=== PATIENT | female | born 1980 | race Caucasian/White ===

== ENCOUNTER → 2017-09-11 12:45 | Outpatient (CLI) | payer MEDICAID, SELFPAY ==
--- NOTE | 2017-09-11 13:00 | US_ITS ---
STUDY: ULTRASOUND OF THE FEMALE PELVIS - COMPLETE REASON FOR EXAM: Female, 37 years old. Irregular bleeding. TECHNIQUE: Abdominal and transvaginal pelvic ultrasound. COMPARISON: None. FINDINGS: Anteverted uterus in the midline measuring 6.9 x 5.2 x 3.7 cm. Normal myometrial echotexture. Cervical nabothian cysts are present, otherwise unremarkable cervix. Endometrium 9.7 mm, normal thickness. Mildly heterogeneous echotexture with no suspicious features. Right ovary 35 x 29 x 12 mm and left ovary 28 x 14 x 14 mm. Each contains small physiologic follicles and exhibits appropriate Doppler vascular flow. There is no adnexal mass or suspicious cyst and there is no cul-de-sac or adnexal free fluid. US/Pelvic (Non ) IMPRESSION: Mild heterogeneity of the endometrium is nonspecific. No masslike features. Endometrium is not abnormally thickened, maximum dimension 9.7 mm. Otherwise unremarkable appearance of uterus and ovaries. Electronically Signed: Clovis Almeida, at 14:46 EDT Tel , Service support ,
--- NOTE | 2017-09-11 13:14 | US_ITS ---
STUDY: ULTRASOUND OF THE FEMALE PELVIS - COMPLETE REASON FOR EXAM: Female, 37 years old. Irregular bleeding. TECHNIQUE: Abdominal and transvaginal pelvic ultrasound. COMPARISON: None. FINDINGS: Anteverted uterus in the midline measuring 6.9 x 5.2 x 3.7 cm. Normal myometrial echotexture. Cervical nabothian cysts are present, otherwise unremarkable cervix. Endometrium 9.7 mm, normal thickness. Mildly heterogeneous echotexture with no suspicious features. Right ovary 35 x 29 x 12 mm and left ovary 28 x 14 x 14 mm. Each contains small physiologic follicles and exhibits appropriate Doppler vascular flow. There is no adnexal mass or suspicious cyst and there is no cul-de-sac or adnexal free fluid. US/Transvaginal Non- IMPRESSION: Mild heterogeneity of the endometrium is nonspecific. No masslike features. Endometrium is not abnormally thickened, maximum dimension 9.7 mm. Otherwise unremarkable appearance of uterus and ovaries. Electronically Signed: Clovis Almeida, at 14:46 EDT Tel , Service support ,
== END ==
PROVIDERS: Visit Provider Obstetrics & Gynecology
DX: N92.6 Irregular menstruation, unspecified (principal)
CPT/HCPCS: 76830; 76856; 93976

== ENCOUNTER → 2017-09-14 10:41 | Outpatient (CLI) | payer MEDICAID, SELFPAY ==
[2017-09-14 12:56] LABS: hCG Titer Quant., Serum < 1 mIU/mL (<9 non-preg)
[2017-09-14 13:01] LABS: Hemoglobin A1c 4.9 % (4.2-6.3)
[2017-09-14 13:07] LABS: Estradiol 96.7 pg/mL; Free T3 2.3 pg/mL (2.18-3.98); T4 Free Direct 0.82 ng/dL (0.76-1.46); Thyroid Stim Hormone (TSH) 1.14 uIU/mL (0.358-3.74)
[2017-09-15 11:29] LABS: Progesterone Level 8.63 ng/mL (See Comment)
== END ==
PROVIDERS: Visit Provider Obstetrics & Gynecology
DX: N92.6 Irregular menstruation, unspecified (principal)
CPT/HCPCS: 36415; 82670; 83036; 84144; 84403; 84439; 84443; 84481; 84702

== ENCOUNTER → 2017-12-20 14:30 | Outpatient (CLI) | payer MEDICAID, SELFPAY ==
[2017-12-26 09:03] LABS: HPV Reflexed? NOT INDICATED
== END ==
PROVIDERS: Visit Provider Obstetrics & Gynecology
DX: Z12.4 Encounter for screening for malignant neoplasm of cervix (principal)
CPT/HCPCS: 88175; G0145

== ENCOUNTER → 2019-01-28 14:01 | Outpatient (CLI) | payer MEDICAID, SELFPAY ==
[2019-01-31 16:08] LABS: Age Gdln ACOG Testing 30-65 (.)
[2019-02-01 16:08] LABS: HPV APTIMA, High Risk Negative (Negative); HPV Reflexed? YES, CHARGE PATIENT
== END ==
PROVIDERS: Visit Provider Obstetrics & Gynecology
DX: Z12.4 Encounter for screening for malignant neoplasm of cervix (principal)
CPT/HCPCS: 87624; 88175; G0145

== ENCOUNTER → 2019-09-16 13:49 | Outpatient (CLI) | payer MEDICAID, SELFPAY ==
--- NOTE | 2019-09-16 13:52 | CT_ITS ---
STUDY: CT SOFT TISSUE NECK WITH CONTRAST REASON FOR EXAM: Female, 39 years old. VOCAL CORD PARALYSIS, PAIN IN BACK OF THROAT, FEELS LIKE A KNOT IN THE BACK OF THROAT RADIATION DOSAGE (If Supplied By Facility): CTDIvol = ( 12.28 ) mGy, DLP = ( 454.19 ) mGycm TECHNIQUE: The patient was scanned in a multi-detector CT scanner. High resolution transaxial imaging was performed following intravenous administration of IV 100mL Isovue-300. Sagittal and coronal images were reconstructed. Individualized dose optimization techniques were used for this CT. COMPARISON: None. FINDINGS: Normal bilateral parotid glands. Normal bilateral imaging system administrator spaces. Normal bilateral parapharyngeal spaces. Normal bilateral carotid spaces. Normal bilateral sublingual and submandibular glands and spaces. Normal visualized nasopharynx. Normal retropharyngeal space. Normal perivertebral space. Normal visualized bilateral faucial tonsils. The visualized tongue, tongue base and oropharynx are normal. The visualized cervical lymph nodes (levels I-) are within normal size limits, and maintain normal morphology. There is no demonstrated solid or cystic mass lesion. There is no abnormal contrast enhancement. Normal epiglottis, bilateral vallecula and hypopharynx. The pre-epiglottic and paraglottic adipose spaces are normal. Normal visualized bilateral piriform sinuses, aryepiglottic folds, vocal cords, and arytenoid-cricoid articulations. Normal subglottic trachea. Normal bilateral lobes of the thyroid gland. Normal visualized pulmonary apices. Normal visualized paranasal sinuses. Normal visualized cervical spine. CT/Soft Tissue Neck WITH Contrast IMPRESSION: Normal enhanced CT examination of the soft tissues of the neck. Electronically Signed: Kevin Ulloa MD at 14:28 EDT , Service support ,
== END ==
PROVIDERS: Referring Provider Otolaryngology; Visit Provider Otolaryngology
DX: J38.01 Paralysis of vocal cords and larynx, unilateral (principal)
CPT/HCPCS: 70491; Q9967

== ENCOUNTER → 2020-05-19 09:04 | Outpatient (CLI) | payer MEDICAID, SELFPAY ==
[2020-05-19 10:09] LABS: Absolute Lymphocyte Count 1.28 X10^3/uL (0.83-4.51); Basophil# 0.06 X10^3/uL; Basophil% 1.2 % (0-1); Eosinophil# 0.19 X10^3/uL; Eosinophils% 3.8 % (0-5); Hematocrit 37.1 % (37-47); Hemoglobin 12.3 g/dL (12.0-15.0); Lymphocyte # 1.28 X10^3/ul (4.0); Lymphocyte % 25.4 % (19-41); Mean Corp Hgb Conc 33.2 g/dL (32-36); Mean Corpuscular Hgb 32.2 pg (27.0-32.0); Mean Corpuscular Volume 97.1 fL (81-99); Mean Platelet Vol. 10.1 fl (6.2-12.0); Monocyte# 0.49 X10^3/uL; Monocyte% 9.7 % (0-10); NRBC Flagged by Analyzer 0 % (0-5); Neutrophil # 3.01 X10^3/uL (2.7-7.7); Neutrophil % 59.7 % (47-70); Platelet Count 264 K/mm3 (150-450); RBC Distribution Width CV 11.9 % (11.6-14.6); RBC Distribution Width SD 42.1 fl (35.1-43.9); Red Blood Count 3.82 M/mm3 (4.2-5.4)
[2020-05-19 10:36] LABS: Vitamin B12 232 pg/mL (211-911); Vitamin D,25 Hydroxy 12.3 ng/mL
[2020-05-19 10:39] LABS: Anion Gap 5 (5-15); BUN 12 mg/dL (7-18); BUN/Creat Ratio 15.3 RATIO (10-20); Chloride 107 mmol/L (98-107); Cholesterol 169 mg/dL (200); Creatinine, Serum 0.78 mg/dL (0.55-1.02); EST Glomerular Filtration Rate 86 mL/min (>60); Est Glom Filt Rate - Afr Amer 105 mL/min (>60); Glucose 82 mg/dL (74-106); High Density Lipoprotein 84 mg/dL; Potassium 3.8 mmol/L (3.5-5.1); Sodium Level 139 mmol/L (136-145); Triglycerides 96 mg/dL; Very Low Density Lipoprotein 19 mg/dL (5-40)
== END ==
PROVIDERS: PCP Family Medicine; Referring Provider Family Medicine; Visit Provider Family Medicine
DX: Z00.00 Encounter for general adult medical examination without abnormal findings (principal); Z78.9 Other specified health status; R00.2 Palpitations; Z82.49 Family history of ischemic heart disease and other diseases of the circulatory system
CPT/HCPCS: 36415; 80048; 80061; 82306; 82607; 85025

== ENCOUNTER → 2020-12-17 | Outpatient (CLI) | payer MEDICAID, SELFPAY | END | disposition home or self-care (01) | PROVIDERS: PCP Family Medicine; Referring Provider Otolaryngology; Visit Provider Otolaryngology | DX: Z03.818 Encounter for observation for suspected exposure to other biological agents ruled out (principal); Z11.59 Encounter for screening for other viral diseases | CPT/HCPCS: 87635; U0005; U0003 ==

== ENCOUNTER → 2021-03-16 | Outpatient (CLI) | payer MEDICAID, SELFPAY | END | disposition home or self-care (01) | LOC: LABSPEC 10:04 | PROVIDERS: PCP Family Medicine; Visit Provider Otolaryngology | DX: Z11.59 Encounter for screening for other viral diseases (principal); Z03.818 Encounter for observation for suspected exposure to other biological agents ruled out | CPT/HCPCS: 87635; U0005; U0003 ==

== ENCOUNTER 2021-05-26 08:06 | Outpatient (CLI) | payer MEDICAID, SELFPAY ==
[2021-05-26 08:38] LABS: Absolute Lymphocyte Count 0.98 X10^3/uL (0.83-4.51); Absolute Neutrophil Count 2.3 X10^3/uL (2.0-7.7); Basophil# 0.07 X10^3/uL; Basophil% 1.8 % (0-1); Eosinophil# 0.15 X10^3/uL; Eosinophils% 3.9 % (0-5); Hematocrit 37.5 % (37-47); Hemoglobin 12.7 g/dL (12.0-15.0); Lymphocyte # 0.98 X10^3/ul (0.83-4.51); Lymphocyte % 25.5 % (19-41); Mean Corp Hgb Conc 33.9 g/dL (32-36); Mean Corpuscular Hgb 31.7 pg (27.0-32.0); Mean Corpuscular Volume 93.5 fL (81-99); Mean Platelet Vol. 9.6 fl (6.2-12.0); Monocyte# 0.36 X10^3/uL; Monocyte% 9.4 % (0-10); NRBC Flagged by Analyzer 0 % (0-5); Neutrophil # 2.27 X10^3/uL (2.7-7.7); Neutrophil % 59.1 % (47-70); Platelet Count 271 K/mm3 (150-450); RBC Distribution Width SD 41.1 fl (35.1-43.9); Red Blood Count 4.01 M/mm3 (4.2-5.4); White Blood Count 3.8 K/mm3 (4.4-11.0)
--- NOTE | 2021-05-26 08:54 | RAD_ITS ---
STUDY: X-RAY - PELVIS AND RIGHT HIP REASON FOR EXAM: Female, 41 years old. Right hip pain. TECHNIQUE: 3 views of the pelvis and hip. COMPARISON: None. FINDINGS: There is a non-specific bowel gas pattern. Normal visualized soft tissue structures. Normal bilateral iliac wings, sacroiliac joints and visualized sacrum. Normal bilateral superior and inferior pubic rami. Normal pubic symphysis. Normal bilateral ischial tuberosities. Incidentally noted is mild lumbosacral spondylosis. Normal visualized femoral head. Normal acetabulum. Normal hip joint. RAD/HIP, UNI W/ Pelvis 2-3 Views IMPRESSION: Mild lumbosacral spondylosis. No abnormality of the visualized pelvis, hips or proximal femurs. No acute abnormality, evidence of erosive changes or fusion. Electronically Signed: Sriram Pat MD at 10:10 EST ,
[2021-05-26 09:08] LABS: Vitamin B12 126 pg/mL (211-911); Vitamin D,25 Hydroxy 10.2 ng/mL
[2021-05-26 09:13] LABS: ALB/GLOB Ratio 1.3 RATIO (0.9-2.4); AST(SGOT) 21 U/L (15-37); Alanine Aminotransfer ALT/SGPT 22 U/L (13-56); Albumin, Serum 3.9 g/dL (3.2-5.0); Alkaline Phosphatase 58 U/L (45-117); Anion Gap 6 (5-15); BUN 15 mg/dL (7-18); BUN/Creat Ratio 20.2 RATIO (10-20); CRP, High Sensitivity Cardiac < 0.16 mg/L; Calcium,Total 8.5 mg/dL (8.5-10.1); Chloride 105 mmol/L (98-107); Cholesterol 141 mg/dL (200); Creatinine, Serum 0.74 mg/dL (0.55-1.02); EST Glomerular Filtration Rate 91 mL/min (>60); Est Glom Filt Rate - Afr Amer 110 mL/min (>60); Glucose 88 mg/dL (74-106); High Density Lipoprotein 68 mg/dL; Iron Binding Capacity,Total 420 ug/dL (250-450); Potassium 4.3 mmol/L (3.5-5.1); Protein, Total 6.9 g/dL (6.4-8.2); Sodium Level 139 mmol/L (136-145); T4 Free Direct 0.78 ng/dL (0.76-1.46); Thyroid Stim Hormone (TSH) 1.22 uIU/mL (0.358-3.74); Triglycerides 65 mg/dL; Very Low Density Lipoprotein 13 mg/dL (5-40)
[2021-05-26 09:19] LABS: Homocysteine 12.6 umol/L (3.2-10.7)
== END 2021-05-26 23:59 | disposition home or self-care (01) ==
PROVIDERS: PCP Family Medicine; Referring Provider Family Medicine; Visit Provider Family Medicine
DX: Z00.00 Encounter for general adult medical examination without abnormal findings (principal); M25.551 Pain in right hip; E78.5 Hyperlipidemia, unspecified
CPT/HCPCS: 36415; 73502; 80053; 80061; 82306; 82607; 83090; 83550; 84439; 84443; 85025; 86141

== ENCOUNTER 2021-07-13 09:06 | Outpatient (CLI) | payer MEDICAID, SELFPAY | END 2021-07-13 23:59 | disposition home or self-care (01) | LOC: LABSPEC 09:12 | PROVIDERS: PCP Family Medicine; Referring Provider Otolaryngology; Visit Provider Otolaryngology | DX: Z20.822 Contact with and (suspected) exposure to COVID-19 (principal) | CPT/HCPCS: 87635; U0003; U0005 ==

== ENCOUNTER → 2021-07-29 | Outpatient (CLI) | payer MEDICAID, SELFPAY ==
[2021-07-29 10:39] LABS: Vitamin B12 559 pg/mL (211-911); Vitamin D,25 Hydroxy 40.6 ng/mL
[2021-07-29 10:54] LABS: Homocysteine 6.8 umol/L (3.2-10.7)
== END | disposition home or self-care (01) ==
LOC: MTLAB 08:16
PROVIDERS: PCP Family Medicine; Referring Provider Family Medicine; Visit Provider Family Medicine
DX: E53.8 Deficiency of other specified B group vitamins (principal); E72.11 Homocystinuria; E55.9 Vitamin D deficiency, unspecified
CPT/HCPCS: 36415; 82306; 82607; 83090

== ENCOUNTER → 2023-05-16 | Outpatient (CLI) | payer BC, SELFPAY ==
--- NOTE | 2023-05-16 10:01 | RAD_ITS ---
STUDY: X-RAY - ABDOMEN/PELVIS REASON FOR EXAM: Female, 43 years old. ABDOMINAL PAIN TECHNIQUE: Single AP view of the abdomen / pelvis. COMPARISON: None. FINDINGS: Normal visualized lung bases. There is a moderate amount of colonic fecal material. The visualized liver, spleen and kidneys are grossly normal in size and morphology. Normal soft tissue structures. Normal visualized osseous structures. RAD/Abdomen Single View IMPRESSION: Normal x-ray examination of the abdomen and pelvis. Electronically Signed: Manuelito Manley MD at 15:07 EST ,
[2023-05-16 12:34] LABS: Erythrocyte Sedimentation Rate < 1 mm/hr (0-30)
[2023-05-16 12:43] LABS: ALB/GLOB Ratio 1.5 RATIO (0.9-2.4); AST(SGOT) 22 U/L (15-37); Alanine Aminotransfer ALT/SGPT 18 U/L (13-56); Alkaline Phosphatase 54 U/L (45-117); Anion Gap 7 (5-15); BUN 10 mg/dL (7-18); BUN/Creat Ratio 13.7 RATIO (10-20); CRP < 2.90 mg/L (0.0-3.0); Calcium,Total 8.6 mg/dL (8.5-10.1); Chloride 108 mmol/L (98-107); Creatinine, Serum 0.73 mg/dL (0.55-1.02); EST Glomerular Filtration Rate 92 mL/min (>60); Est Glom Filt Rate - Afr Amer 112 mL/min (>60); Globulin 2.6 g/dL (2.2-4.2); Glucose 92 mg/dL (74-106); Potassium 3.7 mmol/L (3.5-5.1); Protein, Total 6.6 g/dL (6.4-8.2); Sodium Level 141 mmol/L (136-145)
[2023-05-16 12:44] LABS: Absolute Lymphocyte Count 0.81 X10^3/uL (0.83-4.51); Absolute Neutrophil Count 2.2 X10^3/uL (2.0-7.7); Basophil# 0.03 X10^3/uL; Basophil% 0.9 % (0-1); Eosinophil# 0.12 X10^3/uL; Eosinophils% 3.5 % (0-5); Hematocrit 37.3 % (37-47); Hemoglobin 12.4 g/dL (12.0-15.0); Lymphocyte # 0.81 X10^3/ul (0.83-4.51); Lymphocyte % 23.5 % (19-41); Mean Corp Hgb Conc 33.2 g/dL (32-36); Mean Corpuscular Hgb 32.1 pg (27.0-32.0); Mean Corpuscular Volume 96.6 fL (81-99); Mean Platelet Vol. 10.5 fl (6.2-12.0); Monocyte% 8.7 % (0-10); NRBC Flagged by Analyzer 0 % (0-5); Neutrophil # 2.18 X10^3/uL (2.7-7.7); Neutrophil % 63.4 % (47-70); Platelet Count 234 K/mm3 (150-450); RBC Distribution Width CV 12.1 % (11.6-14.6); RBC Distribution Width SD 42.3 fl (35.1-43.9); Red Blood Count 3.86 M/mm3 (4.2-5.4); White Blood Count 3.4 K/mm3 (4.4-11.0)
== END | disposition home or self-care (01) ==
PROVIDERS: PCP Nurse Practitioner Family; Referring Provider Nurse Practitioner Family; Visit Provider Nurse Practitioner Family
DX: R10.84 Generalized abdominal pain (principal); R19.4 Change in bowel habit; R19.8 Other specified symptoms and signs involving the digestive system and abdomen
CPT/HCPCS: 36415; 74018; 80053; 85025; 85652; 86140

== ENCOUNTER → 2023-08-25 | Outpatient (CLI) | payer BC, SELFPAY | END | disposition home or self-care (01) | PROVIDERS: PCP Nurse Practitioner Family; Referring Provider Family Medicine; Visit Provider Family Medicine | DX: R19.7 Diarrhea, unspecified (principal) | CPT/HCPCS: 83630; 87177; 87209; 87329; 87493; 87506 ==

== ENCOUNTER → 2023-09-05 | Outpatient (CLI) | payer BC, SELFPAY ==
--- NOTE | 2023-09-05 13:56 | CT_ITS ---
STUDY: CT ABDOMEN AND PELVIS WITH CONTRAST REASON FOR EXAM: Female, 43 years old. DIARRHEA/WEIGHT LOSS RADIATION DOSAGE (If Supplied By Facility): CTDIvol = ( 11.37 ) mGy, DLP = ( 465.61 ) mGycm TECHNIQUE: Transaxial images were obtained from the dome of the diaphragm to the symphysis pubis with oral contrast. Oral and amp; IV Readi-CAT and amp; 100mL Isovue-300 was administered. Sagittal and coronal images were reconstructed. Individualized dose optimization techniques were used for this CT. COMPARISON: None. FINDINGS: Patchy infiltrates in the posterior medial segment of the left lower lobe. Follow-up recommended. The visualized portions of the heart are within normal limits. There is a 6.2 mm cyst in the superior medial aspect of the right lobe of the liver. The gallbladder is contracted. Normal spleen. Normal pancreas. Normal bilateral adrenal glands. Normal right kidney. Normal left kidney. Normal visualized stomach. Findings suggestive of a thickening of the possibility conniventes of the small bowel loops. Correlation with a small bowel follow-through examination recommended. Large amount of fecal material is seen in the colon. The appendix is visualized and appears normal. Normal abdominal aorta. Normal inferior vena cava. Normal retroperitoneum. Normal urinary bladder. Small amount of free fluid is seen in the cul-de-sac. Normal abdominal wall. Moderate degree of disc space narrowing at the L5-S1 level with the anterolisthesis of L5 on S1 due to spondylolysis of the pars interarticularis of the L5 vertebrae. CT/Abdomen/Pelvis WITH Contrast IMPRESSION: Large amount of fecal material is seen in the colon. Edematous changes of the abdomen, the ventricles of the small bowel loops. Correlation with a small bowel follow-through examination recommended. Infiltrates in the left lower lobe. Electronically Signed: Manuelito Manley MD at 15:14 EDT ,
== END | disposition home or self-care (01) ==
LOC: CT 13:54
PROVIDERS: PCP Family Medicine; Referring Provider Family Medicine; Visit Provider Family Medicine
DX: K52.9 Noninfective gastroenteritis and colitis, unspecified (principal)
CPT/HCPCS: 74177; Q9967

== ENCOUNTER → 2023-09-06 | Outpatient (CLI) | payer BC, SELFPAY ==
[2023-09-06 10:28] LABS: Erythrocyte Sedimentation Rate 8 mm/hr (0-30)
[2023-09-06 11:16] LABS: Vitamin B12 813 pg/mL (211-911)
[2023-09-06 12:56] LABS: Thyroid Stim Hormone (TSH) 1.31 uIU/mL (0.358-3.74)
[2023-09-10 04:06] LABS: Anti-Centromere B Ab <0.2 AI (0.0-0.9); Anti-Chromatin <0.2 AI (0.0-0.9); Anti-Jo <0.2 AI (0.0-0.9); Anti-Scleroderma-70 AB <0.2 AI (0.0-0.9); Anti-dsDNA Ab <1 IU/mL (0-9); Beef <0.10 kU/L (Class 0); Chocolate <0.10 kU/L (Class 0); Codfish <0.10 kU/L (Class 0); Corn <0.10 kU/L (Class 0); Egg, Whole <0.10 kU/L (Class 0); Milk (Cow) <0.10 kU/L (Class 0); Mussels <0.10 kU/L (Class 0); Peanut <0.10 kU/L (Class 0); Pork <0.10 kU/L (Class 0); RNP Ab 0.8 AI (0.0-0.9); SJOGREN'S Anti-SS-A test < 0.2 AI (0.0-0.9); SJOGREN'S Anti-SS-B test < 0.2 AI (0.0-0.9); Salmon <0.10 kU/L (Class 0); Shrimp <0.10 kU/L (Class 0); Smith Ab <0.2 AI (0.0-0.9); Soybean <0.10 kU/L (Class 0); Tuna <0.10 kU/L (Class 0); Wheat <0.10 kU/L (Class 0)
[2023-09-11 17:07] LABS: ACCA 206 units (0-90); ALCA 3 units (0-60); AMCA 6 units (0-100); Albumin 3.7 g/dL (2.9-4.4); Alpha-1-Globulins 0.3 g/dL (0.0-0.4); Alpha-2-Globulins 0.9 g/dL (0.4-1.0); Cytoplasmic Ab (C-ANCA) <1:20 titer (Neg:<1:20); Endomysial Antibody IgA Negative (Negative); Gamma Globulin 0.3 g/dL (0.4-1.8); Immunoglobulin A 141 mg/dL (87-352); Immunoglobulin E < 2 IU/mL (6-495); Immunoglobulin G 369 mg/dL (586-1602); Immunoglobulin M 52 mg/dL (26-217); PROEL- TOTAL PROTEIN 6.1 g/dL (6.0-8.5); Perinuclear Ab (P-ANCA) <1:20 titer (Neg:<1:20); QNTFERON TB Mitogen Value > 10.00 IU/mL (.); QNTFERON TB Nil Value 0.04 IU/mL (.); QNTFERON TB1+ Ag Value 0.04 IU/mL (.); QNTFERON TB2+ Ag Value 0.04 IU/mL (.); QNTIFERON TB Positive Criteria Negative (Negative); gASCA 1 units (0-50); t-Transglutaminase IgA <2 U/mL (0-3)
== END | disposition home or self-care (01) ==
PROVIDERS: PCP Family Medicine; Referring Provider Internal Medicine Gastroenterology; Visit Provider Internal Medicine Gastroenterology
DX: R19.7 Diarrhea, unspecified (principal); R10.9 Unspecified abdominal pain
CPT/HCPCS: 36415; 82607; 82784; 82785; 83516; 84165; 84443; 85652; 86003; 86005; 86036; 86140; 86225; 86235; 86255; 86256; 86334; 86480; 86671

== ENCOUNTER 2023-09-19 10:53 | Day surgery (SDC) | payer BC, SELFPAY ==
[2023-09-19] VITALS (7 sets, daily range): BP systolic 93–122; BP diastolic 51–73; PULSE 48–60; RESP 16–20; TEMP 36.4–36.6; O2SAT 100; BMI 18.5
[2023-09-19] MEDS: Lactated Ringers 1,000 ML 15 ML IV (11:13)
[2023-09-19 11:14] LABS: Internal QC Validated? YES +Cl - CLEAR BKGD; Pregnancy, Urine Negative Negative
--- NOTE | 2023-09-19 11:34 | PCM.PRE.AN2 ---
ASA Classification* ASA Classification ASA Classification: 1 Assessment & Plan Anesthesia* Anesthesia Assessment Anesthesia Assessment: Discussed sedation and/or anesthesia options, risks, benefits, and alternatives with patient/parents/legal guardian/POA. Questions invited. The patient/parents/legal guardian/POA seems to understand and agrees to proceed with anesthesia plan. Reviewed the physical assessment, medical history, allergy history and patient home medications list prior to surgery/procedure/anesthetic and documented any changes. Performed airway and anesthesia risk assessments. Procedural Plan Procedural Plan:: Proceed w/ Anesthesia plan Anesthesia Type Anesthesia Type: MAC History Source History Obtained from:: Patient and Chart Anesthesia Focused Assessment* Temperature: 97.8 F Pulse Rate: 48 Blood Pressure: 122/73 Respiratory Rate: 16 Pulse Ox: 100 Oxygen Delivery Method: Room Air Airway Assessment Mouth opens: >3 cm Mallampati Score: I Teeth Condition: Intact Neck Range of motion (ROM): Full ROM Focused Labs Anesthesia Preop lab: CBC WBC 3.4 K/mm3 (4.4-11.0) L 05/16/23 09:43 RBC 3.86 M/mm3 (4.2-5.4) L 05/16/23 09:43 Hgb 12.4 g/dL (12.0-15.0) 05/16/23 09:43 Hct 37.3 % (37-47) 05/16/23 09:43 Plt Count 234 K/mm3 (150-450) 05/16/23 09:43 CHEMISTRY Potassium 3.7 mmol/L (3.5-5.1) 05/16/23 09:43 Sodium 141 mmol/L (136-145) 05/16/23 09:43 BUN 10 mg/dL (7-18) 05/16/23 09:43 Creatinine 0.73 mg/dL (0.55-1.02) 05/16/23 09:43 Glucose 92 mg/dL (74-106) 05/16/23 09:43 TSH 1.31 uIU/mL (0.358-3.74) 09/06/23 09:41 COAG HCG, Quant < 1 mIU/mL (<9 non-preg) 09/14/17 10:43 Urine Test Negative Negative 09/19/23 11:09 Pre-Assessment Diagnosis/Proposed Procedure Planned Operative Procedure(s): EGD/CSCOPE Anesthesia History Anesthesia History - senior net software developer: Anesthesia History - senior net software developer Hx Hospitalization No 09/12/23 15:15 Any Problems With Anesthesia No 09/12/23 15:15 Cholinesterase deficiency No 09/12/23 15:15 You/Your Family Experience No 09/12/23 15:15 fever (hyperthermia) with Relationship Recent Exposure to Contagious No 09/19/23 11:10 Disease Does patient have nerve No 09/12/23 15:15 stimulator Patient instructed to have device shut off --Does patient have Pacemaker No 09/19/23 11:10 or ICD? When Was Last Pacemaker Check QUESTION #4 FULL TEXT: You/Your Family Experience fever (hyperthermia) with Anesthesia Last Oral Intake Last Oral intake: Last Oral Intake NPO since Meds taken in AM with sips of water? Meds patient instructed to take am of surgery Any additional information?: Yes NPO since: 08:20 (Prep) PONV PONV - senior net software developer: PONV - senior net software developer Female Yes 09/12/23 15:15 HX of Motion Sickness Yes 09/12/23 15:15 HX of N/V After Surgery No 09/12/23 15:15 Non-Smoker Yes 09/12/23 15:15 Duration of Surgery greater No 09/12/23 15:15 than 60 minutes Number of Risk Factors 3 09/12/23 15:15 PONV Score Moderate Risk 09/12/23 15:15 Height & Weight Height & Weight: Anesthesia: Height & Weight Height 5 ft 9 in 09/19/23 11:10 Weight: 56.9 kg 09/19/23 11:10 Body Mass Index (BMI) 18.5 09/19/23 11:10 Respiratory Assessment Respiratory Assessment - senior net software developer: Respiratory Tract Infection Hx - senior net software developer Hx Respiratory Tract Infection Yes: 2 WEEKS/PNEUMONIA/ 09/12/23 15:15 RESOLVING Any additional information?: Yes Hx Respiratory Tract Infection: Yes (Recent cold: Resolved) STOP Sleep Apnea STOP Sleep Apnea - senior net software developer: STOP Sleep Apnea - senior net software developer Hx Hypertension No 09/12/23 15:15 Hx Sleep Apnea No 09/12/23 15:15 CPAP BIPAP Do you snore loudly (louder No 09/12/23 15:15 than talking or can be heard Do you often feel tired/ No 09/12/23 15:15 fatigued/ sleepy during daytime? Has anyone observed you stop No 09/12/23 15:15 breathing during sleep? STOP Results Negative 09/12/23 15:15 QUESTION #5 FULL TEXT : Do you snore loudly (louder than talking or can be heard through closed doors)? 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 Specify any problems Hx of Preganancy in last 3 No 09/12/23 15:15 Months Nurse Filling Out Transfusion DSCHRIBER 09/12/23 15:15 & Questions: Date: 09/12/23 09/12/23 15:15 Time: 15:17 09/12/23 15:15 Patient unable to answer at this time (ie. confused, unrespo /Reproduction History /Reproductive History - senior net software developer: /Reproductive Hx- senior net software developer Hx Now No 09/12/23 15:15 Gestational Age (in weeks): EDC: Hx Hx Para Hx Section SAB No 09/12/23 15:15 Active Medications Active Medications: Current Medications Generic Name Dose Route Start Last Admin Trade Name Freq PRN Reason Stop Dose Admin Lactated Ringer's 1,000 mls @ 15 mls/hr 09/19/23 11:15 09/19/23 11:13 IV 15 mls/hr .Q48H MAUREEN Administration PFSH Medical History Alcohol use Anemia Non-smoker Abdominal cramping Diarrhea Home Medications ?Medication ?Instructions ?Recorded ?Last Taken ?Type Lactobacillus acidophilus 1 1,000 mmu cells PO DAILY 09/01/23 Unknown History billion cell capsule multivitamin 1 tab PO DAILY 09/01/23 Unknown History Allergy/AdvReac Type Severity Reaction Status Date / Time No Known Allergies Allergy Verified 09/19/23 11:10 Family History Grandfather Myocardial infarction Mother H/O aortic valve replacement Father Prostate cancer Other Arthritis Heart disease Surgical History No history of previous surgery Social History household members: spouse and children current occupational status: employed 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
--- NOTE | 2023-09-19 12:00 | EGD_PTH ---
PATIENT: DENIA JOHN LOC: EN U#:[id number] AGE/SX: 43/F ROOM: RE09/19/[address]: Dr. Chandrakant Sullivan DO : 1980 BED: DIS: 09/19/2023 SPEC #: [id number] RECD: 09/19/23 17:59 STATUS: ANDREWS REMary #: [id number] [place]: 09/19/23 12:[address]: Chandrakant Sullivan DEPT: SURGICAL PATHOLOGY RECD BY: Carli Light ENTERED: 09/20/23 10:26 SP TYPE: EGD BIOPSY OTHR DR: Dr. Brenna Sun MD Tissues: A - Duodenum, NOS B - Gastric mucous membrane C - Esophagus, NOS D - Ileum, NOS E - COLON BIOPSY Procedures: Special Stain Group I Surgery Specimen Level IV Alcian Blue/PAS (control) HEADER OPERATION: Colonoscopy with biopsy, EGD with biopsy PRE-OP DIAGNOSIS: Abdominal cramping TISSUE SUBMITTED: A- Duodenum, B- Gastric antrum, C- Distal esophagus, D- Terminal ileum, E- Random colon MICROSCOPIC DIAGNOSIS A. Duodenum, biopsy: Fragments of duodenal mucosa, no pathologic diagnosis. B. Gastric antrum, biopsy: Minimal gastritis. See microscopic description and comment. C. Distal esophagus, biopsy: Fragments of gastroesophageal mucosa with moderate chronic inflammation. Intestinal metaplasia (goblet cell metaplasia) not identified. See comment. D. Terminal ileum, biopsy: Fragments of small intestinal mucosa, no pathologic diagnosis. E. Colon, random biopsy: Fragments of hyperplastic polyp. Additional fragments of colonic mucosa, no pathologic diagnosis. SJ/mr 09/21/2023 COMMENT B. The results of immunohistochemistry for Helicobacter pylori will be reported separately ([id number]). C. Alcian blue/PAS stain with matched control is used in the evaluation of the specimen. MICROSCOPIC DESCRIPTION Slides are reviewed. B. The specimen shows fragments of gastric mucosa with chronic inflammatory cell infiltrates in the lamina propria consisting of lymphocytes and plasma cells, consistent with minimal gastritis. GROSS DESCRIPTION A. Received in fixative is one container labeled with the patient's name and designated Duodenum biopsy. The specimen consists of multiple irregular fragments of light sena soft tissue that in aggregate measure 1.2 x 0.3 x 0.1 cm. The specimen is totally submitted in one cassette. B. Received in fixative is one container labeled with the patient's name and designated Gastric antrum biopsy. The specimen consists of multiple irregular fragments of light sena soft tissue that in aggregate measure 1.0 x 0.4 x 0.1 cm. The specimen is totally submitted in one cassette. C. Received in fixative is one container labeled with the patient's name and designated Distal esophagus biopsy. The specimen consists of multiple irregular fragments of light sena soft tissue that in aggregate measure 0.8 x 0.3 x 0.1 cm. The specimen is totally submitted in one cassette. D. Received in fixative is one container labeled with the patient's name and designated Terminal ileum biopsy. The specimen consists of two irregular fragments of light sena soft tissue that in aggregate measure 0.6 x 0.3 x 0.1 cm. The specimen is totally submitted in one cassette. E. Received in fixative is one container labeled with the patient's name and designated Random colon biopsy. The specimen consists of multiple irregular fragments of light sena soft tissue that in aggregate measure 1.5 x 0.5 x 0.1 cm. The specimen is totally submitted in one cassette. Day 09/20/2023 TC:3 CPT:[id number]
--- NOTE | 2023-09-19 12:00 | IMM_PTH ---
PATIENT: DENIA JOHN LOC: EN U#:[id number] AGE/SX: 43/F ROOM: RE09/19/[address]: Dr. Chandrakant Sullivan DO : 1980 BED: DIS: 09/19/2023 SPEC #: [id number] RECD: 09/20/23 08:27 STATUS: ANDREWS REMary #: [id number] [place]: 09/19/23 12:[address]: Chandrakant Sullivan DEPT: IMMUNOHISTOCHEMISTRY RECD BY: Michael Dacosta ENTERED: 09/20/23 08:27 SP TYPE: IMMUNO OTHR DR: Dr. Brenna Sun MD Tissues: B - Gastric mucous membrane Procedures: H Pylori (initial) PHYSICIAN & INSTITUTION [place] [id number] SPECIMEN INFORMATION: Tissue Source: B- Gastric antrum Clinical Info: Abdominal cramping Specimen Number: [id number] CPT code: 08564 METHODOLOGY: Deparaffinized sections of prefer/formalin-fixed tissue or PAP/DQ stained slides are incubated with monoclonal/polyclonal antibodies/oligonucleotide probes. Localization is made via biotin free immunoperoxidase method. Appropriate controls are performed and reacted as expected. Results on target cell population are indicated in the following table: RESULTS: ANTIBODY / CLONE RESULT Block B H Pylori (polyclonal) negative These tests were developed and their performance characteristics determined by [facility]. They may not have been cleared or approved by the U.[place]. Food and Drug Administration. The FDA has determined that such clearance or approval is not necessary. The above immunohistochemical/dualISH markers are ordered and reviewed by the Pathologist. INTERPRETATION: B. Gastric antrum, biopsy: Negative for Helicobacter pylori organisms. CON/ 09/21/2023
--- NOTE | 2023-09-19 12:11 | PCM.HP.BLA ---
History and Physical Date of Admission: 09/19/23 DENIA JOHN, is a 43 F who presents to the office today for initial consult. *I established 09.06.23 pt reports that she returned from [place] two months ago and since then has been having alternating diarrhea and constipation, abdominal pain after eating and drinking, and excessive bloating. Pt reports that she has lost 10lbs in the last two months. ROS Const Constitutional: Positive for fatigue, fever(s) and weight change (weight loss) ENT ENT: No difficulty swallowing Gastro GI: Positive for abdominal pain, bloating, change in bowel habits, constipation, diarrhea, heartburn and excessive flatus; No belching, change in stool character, coffee ground emesis, cramping, difficulty swallowing, feeling full early, incontinent of stools, Vomiting blood/hematemesis, Blood in stool, loose stools, Black,tarry stools, nausea/dyspepsia, pain with swallowing, vomiting or other Musc Musculoskeletal: Positive for numbness, stiffness, tingling and restless legs; No joint pain Skin Skin: No yellowing of the eye or itchy eyes Neuro Neurology: Positive for numbness, tingling and restless legs Psych Psychiatric: No anxiety and No depression Endo Endocrine: Positive for fatigue and weight change (weight loss) Aller/Imm Allergy/Immunologic: No itchy eyes Jean Claude/Lymp Hematologic/Lymphatic: No easy bleeding or easy bruising Exam Const General: cooperative and comfortable Nutritional Appearance: average body habitus and well nourished [facility] Head: normal to inspection Ears: hearing grossly normal bilaterally Nose: external nose normal Face and sinus: normal facial exam Mouth: oral mucosae normal Throat: posterior oropharynx normal Eyes General: appearance normal, both eyes and all related structures Neck Neck: normal visual inspection Chest Chest palpation & inspection: normal inspection of the chest and normal palpation of entire chest wall Resp Effort & Inspection: normal respiratory effort Auscultation: Bilateral: Clear to Auscultation Cardio Palpation: normal PMI Rate: regular rate Rhythm: regular rhythm GI Inspection: normal to inspection Auscultation: normal bowel sounds Percussion: normal to percussion Palpation: no hepatosplenomegaly Skin General: no rashes or lesions noted Neuro General: patient alert Extrem General: normal to inspection Psych Affect: normal affect Assessment and Plan Assessment and Plan (1) Diarrhea: Status: Acute (2) Abdominal cramping: Status: Acute Plan: 43-year-old with no significant past medical history was in [place] approximately 2 months ago when she developed fatigue and weakness associated with abdominal pain nausea vomiting and diarrhea. She came back into the [facility] and was evaluated by her primary care doctor with stool studies and biochemical workup. Her stool studies were negative for enteric pathogens, ova and parasites and Giardia. Her stool studies were also negative for lactoferrin. She has no family history of inflammatory bowel disease. She does not take any medicines on a daily basis except for multivitamin. She has not had any abdominal surgeries. She carries no history of endometriosis or autoimmune disease. She also denied any other subjective symptoms including fever, muscle aches, cough, shortness of breath or rash. She has no history of asthma, chronic viral hepatitis, acute viral hepatitis or any other mono-like none hepatitis virus. She has lost about 10 pounds due to her diarrhea. She does not smoke cigarettes and does not drink any alcoholic beverages. The fatigue is better but she is still having diarrhea with food substances and nonfood substances. She had a CT scan of the abdomen pelvis that had shown some inflammation in her small intestines. Differential diagnosis for her symptoms does include IBS with diarrhea, postinfectious diarrhea, inflammatory bowel disease, celiac disease, nonceliac gluten sensitivity, sprue disease. She should undergo an upper or lower endoscopy to evaluate upper lower GI tract. We will get biopsies and depending on the findings she may need a capsule endoscopy or MR enterography. She was explained alternatives, risk, benefits include not withstanding bleeding, infection, sepsis, perforation, need for more charge and . She will have an ASA of 3. Orders: Orders Allergen, Food Profile 14 Today R10.9 - Unspecified abdominal pain, R19.7 - Diarrhea, unspecified CHIP Comprehensive Panel Today R10.9 - Unspecified abdominal pain, R19.7 - Diarrhea, unspecified ANCA Today R10.9 - Unspecified abdominal pain, R19.7 - Diarrhea, unspecified Celiac Disease Profile Today R10.9 - Unspecified abdominal pain, R19.7 - Diarrhea, unspecified CRP Today R10.9 - Unspecified abdominal pain, R19.7 - Diarrhea, unspecified Erythrocyte Sed Rate Today R10.9 - Unspecified abdominal pain, R19.7 - Diarrhea, unspecified IBD Expanded Profile Today R10.9 - Unspecified abdominal pain, R19.7 - Diarrhea, unspecified YASMEEN + Protein Elect, Serum Today R10.9 - Unspecified abdominal pain, R19.7 - Diarrhea, unspecified Immunoglobulins G/A/M/E Today R10.9 - Unspecified abdominal pain, R19.7 - Diarrhea, unspecified Quantiferon TB-Gold+ Today R10.9 - Unspecified abdominal pain, R19.7 - Diarrhea, unspecified Vitamin B12 Today R10.9 - Unspecified abdominal pain, R19.7 - Diarrhea, unspecified Thyroid Stim Hormone (TSH) Today R10.9 - Unspecified abdominal pain, R19.7 - Diarrhea, unspecified Miscellaneous Lab Procedure Today R10.9 - Unspecified abdominal pain, R19.7 - Diarrhea, unspecified Colonoscopy 09/19/23 R10.9 - Unspecified abdominal pain, R19.7 - Diarrhea, unspecified EGD 09/19/23 R10.9 - Unspecified abdominal pain, R19.7 - Diarrhea, unspecified I have examined the patient and the H&P has been reviewed. There are no clinical changes since date of exam.
--- NOTE | 2023-09-19 12:57 | OP.CCLET_ITS ---
09/19/2023 Brenna Sun [id number] [facility] [address] [address] Re : Upper GI endoscopy procedure for Montse Marmolejo Dear Dr. Sun This procedure was performed on Tuesday, September 19, 2023. My impressions and recommendations are as follows: Impressions : - Normal esophagus. - Z-line irregular, 39 cm from the incisors. Biopsied. - Non-bleeding gastric ulcer with no stigmata of bleeding. Biopsied. - Chronic bile duodenitis. Biopsied. Recommendations : - Discharge patient to home. - Resume previous diet. - Continue present medications. - Await pathology results. My findings are described in the full procedure note, which is enclosed. If I can be of further assistance, please feel free to contact me at . Sincerely, Chandrakant Sullivan, 09/19/2023 12:57:17 PM This report has been signed electronically.
--- NOTE | 2023-09-19 12:57 | OP.EGD_ITS ---
Patient Name: Montse Marmolejo Procedure Date: 09/19/2023 11:59 AM Date of : 1980 Age: 43 Procedure: Upper GI endoscopy Indications: Epigastric abdominal pain Providers: Chandrakant Sullivan DO Referring MD: Chandrakant Sullivan DO Medicines: Monitored Anesthesia Care Patient Profile: This is a 43 year old female. Refer to note in patient chart for documentation of history and physical. Patient has symptoms of chronic abdominal cramping, chronic abdominal distention and chronic epigastric abdominal pain. Complications: No immediate complications. Procedure: Pre-Anesthesia Assessment: - Prior to the procedure, a History and Physical was performed, and patient medications and allergies were reviewed. The risks and benefits of the procedure and the sedation options and risks were discussed with the patient. All questions were answered and informed consent was obtained. Patient identification and proposed procedure were verified by the physician in the pre-procedure area. Mental Status Examination: normal. CV Examination: normal. Prophylactic Antibiotics: The patient does not require prophylactic antibiotics. Prior Anticoagulants: The patient has taken no anticoagulant or antiplatelet agents. ASA Grade Assessment: II - A patient with mild systemic disease. After reviewing the risks and benefits, the patient was deemed in satisfactory condition to undergo the procedure. The anesthesia plan was to use monitored anesthesia care (MAC). Immediately prior to administration of medications, the patient was re-assessed for adequacy to receive sedatives. The heart rate, respiratory rate, oxygen saturations, blood pressure, adequacy of pulmonary ventilation, and response to care were monitored throughout the procedure. The physical status of the patient was re-assessed after the procedure. After obtaining informed consent, the endoscope was passed under direct vision. Throughout the procedure, the patient's blood pressure, pulse, and oxygen saturations were monitored continuously. The colonoscope was introduced through the mouth, and advanced to the second part of duodenum. The upper GI endoscopy was accomplished without difficulty. The patient tolerated the procedure well. Scope In: 12:22:54 PM Scope Out: 12:29:13 PM Total Procedure Duration Time 0 hours 6 minutes 19 seconds Findings: The Z-line was irregular and was found 39 cm from the incisors. Biopsies were taken with a cold forceps for histology. Verification of patient identification for the specimen was done. Estimated blood loss was minimal. One non-bleeding linear gastric ulcer with no stigmata of bleeding was found in the gastric body. The lesion was 5 mm in largest dimension. Biopsies were taken with a cold forceps for histology. Verification of patient identification for the specimen was done. Estimated blood loss was minimal. Biopsies were taken with a cold forceps for Helicobacter pylori testing. Verification of patient identification for the specimen was done. Estimated blood loss was minimal. Patchy mild inflammation characterized by erythema was found in the duodenal bulb. Biopsies were taken with a cold forceps for histology. Verification of patient identification for the specimen was done. LA Grade B (one or more mucosal breaks greater than 5 mm, not extending between the tops of two mucosal folds) esophagitis with no bleeding was found 34 to 39 cm from the incisors. Impression: - Normal esophagus. - Z-line irregular, 39 cm from the incisors. Biopsied. - Non-bleeding gastric ulcer with no stigmata of bleeding. Biopsied. - Chronic bile duodenitis. Biopsied. Recommendation: - Discharge patient to home. - Resume previous diet. - Continue present medications. - Await pathology results. Procedure Code(s): --- Professional --- 76427, Esophagogastroduodenoscopy, flexible, transoral; with biopsy, single or multiple CPT copyright 2021 [employer]. All rights reserved. The codes documented in this report are preliminary and upon ironworker foreman review may be revised to meet current compliance requirements. Chandrakant Sullivan DO 09/19/2023 12:57:17 PM This report has been signed electronically. Number of Addenda: 0 Note Initiated On: 09/19/2023 11:59 AM
--- NOTE | 2023-09-19 13:00 | OP.CCLET_ITS ---
09/19/2023 Brenna Sun [id number] [address] Re : Colonoscopy procedure for Montse Marmolejo Dear Dr. Sun This procedure was performed on Tuesday, September 19, 2023. My impressions and recommendations are as follows: Impressions : - Redundant colon. - Congested mucosa in the recto-sigmoid colon, in the sigmoid colon, at the splenic flexure and at the hepatic flexure. Biopsied. - Congested mucosa in the distal ileum. Biopsied. Recommendations : - Discharge patient to home. - Resume previous diet. - Continue present medications. - Await pathology results. - Repeat colonoscopy in 10 years for screening purposes. My findings are described in the full procedure note, which is enclosed. If I can be of further assistance, please feel free to contact me at . Sincerely, Chandrakant Sullivan, 09/19/2023 12:59:58 PM This report has been signed electronically.
--- NOTE | 2023-09-19 13:00 | OP.COLON_ITS ---
Patient Name: Montse Marmolejo Procedure Date: 09/19/2023 12:29 PM Date of : 1980 Age: 43 Procedure: Colonoscopy Indications: Generalized abdominal pain, Clinically significant diarrhea of unexplained origin Providers: Chandrakant Sullivan DO Referring MD: Chandrakant Sullivan DO Medicines: Monitored Anesthesia Care Patient Profile: This is a 43 year old female. Refer to note in patient chart for documentation of history and physical. Patient has symptoms of chronic abdominal cramping, chronic abdominal distention and chronic epigastric abdominal pain. Last Colonoscopy: none. The patient's first colonoscopy is today. Complications: No immediate complications. Procedure: Pre-Anesthesia Assessment: - Prior to the procedure, a History and Physical was performed, and patient medications and allergies were reviewed. The risks and benefits of the procedure and the sedation options and risks were discussed with the patient. All questions were answered and informed consent was obtained. Patient identification and proposed procedure were verified by the physician in the pre-procedure area. Mental Status Examination: normal. CV Examination: normal. Prophylactic Antibiotics: The patient does not require prophylactic antibiotics. Prior Anticoagulants: The patient has taken no anticoagulant or antiplatelet agents. ASA Grade Assessment: II - A patient with mild systemic disease. After reviewing the risks and benefits, the patient was deemed in satisfactory condition to undergo the procedure. The anesthesia plan was to use monitored anesthesia care (MAC). Immediately prior to administration of medications, the patient was re-assessed for adequacy to receive sedatives. The heart rate, respiratory rate, oxygen saturations, blood pressure, adequacy of pulmonary ventilation, and response to care were monitored throughout the procedure. The physical status of the patient was re-assessed after the procedure. After I obtained informed consent, the scope was passed under direct vision. Throughout the procedure, the patient's blood pressure, pulse, and oxygen saturations were monitored continuously. The colonoscope was introduced through the anus and advanced to the terminal ileum. The colonoscopy was performed without difficulty. The patient tolerated the procedure well. The quality of the bowel preparation was adequate. The terminal ileum, ileocecal valve, appendiceal orifice, and rectum were photographed. Scope In: 12:31:35 PM Scope Withdrawal Time 0 hours 11 minutes 44 seconds Scope Out: 12:49:05 PM Total Procedure Duration Time 0 hours 17 minutes 30 seconds Findings: The perianal and digital rectal examinations were normal. The colon (entire examined portion) was significantly redundant. An area of mildly congested mucosa was found in the recto-sigmoid colon, in the sigmoid colon, at the splenic flexure and at the hepatic flexure. Biopsies were taken with a cold forceps for histology. Verification of patient identification for the specimen was done. Estimated blood loss was minimal. A patchy area of the distal ileum was congested. Biopsies were taken with a cold forceps for histology. Verification of patient identification for the specimen was done. Estimated blood loss was minimal. Impression: - Redundant colon. - Congested mucosa in the recto-sigmoid colon, in the sigmoid colon, at the splenic flexure and at the hepatic flexure. Biopsied. - Congested mucosa in the distal ileum. Biopsied. Recommendation: - Discharge patient to home. - Resume previous diet. - Continue present medications. - Await pathology results. - Repeat colonoscopy in 10 years for screening purposes. Procedure Code(s): --- Professional --- 65512, Colonoscopy, flexible; with biopsy, single or multiple CPT copyright 2021 [employer]. All rights reserved. The codes documented in this report are preliminary and upon finance lecturer review may be revised to meet current compliance requirements. Chandrakant Sullivan DO 09/19/2023 12:59:58 PM This report has been signed electronically. Number of Addenda: 0 Note Initiated On: 09/19/2023 12:29 PM
--- NOTE | 2023-09-19 13:00 | PCM.POST.ANE ---
Anesthesia: Postop Eval I Current Vital Signs Temperature: 97.7 F Pulse Rate: 53 Blood Pressure: 93/51 Respiratory Rate: 20 Pulse Ox: 100 Oxygen Delivery Method: Room Air Assessment Airway patent: Yes Spontaneous unlabored respirations: Yes Mental status: Awake nausea: No Vomiting: No Anesthesia Complication: No Fluid Hydration Crystalloid volume administer (ml): 800 Total IV fluid infused: 800 Progress Note Anesthesia document: Postop Eval 1 completed: Yes
--- NOTE | 2023-09-19 16:51 | POSTOPAN2_ITS ---
Anesthesia Postop Eval I Sum Postop Eval Completion status Anesthesia document: Postop Eval 1 completed: Yes Anesthesia Postop Eval I Summary Anesthesia Postop Eval I Summary: Anesthesia Postop Eval I: Assessment Summary Airway patent Yes 09/19/23 13:01 ELECTRICAL LABORATORY TECHNICIAN.JDEF Spontaneous unlabored Yes 09/19/23 13:01 ELECTRICAL LABORATORY TECHNICIAN.JDEF respirations Mental status Awake 09/19/23 13:01 ELECTRICAL LABORATORY TECHNICIAN.JDEF nausea No 09/19/23 13:01 ELECTRICAL LABORATORY TECHNICIAN.JDEF Vomiting No 09/19/23 13:01 ELECTRICAL LABORATORY TECHNICIAN.JDEF Anesthesia Postop Eval I: Fluid Summary Crystalloid volume administer 800 09/19/23 13:01 ELECTRICAL LABORATORY TECHNICIAN.JDEF (ml) Colloids volume administered ( ml) Blood Product volume administered (ml) Total IV fluid infused 800 09/19/23 13:01 ELECTRICAL LABORATORY TECHNICIAN.JDEF Anesthesia Postop Eval I: Summary Notes Anesthesia Complication No 09/19/23 13:01 ELECTRICAL LABORATORY TECHNICIAN.JDEF Anesthesia Complication Comment: Post-operative progress note Anesthesia: Postop Eval II Evaluation Mental status: Awake and Calm Pain Level: 0 nausea: No Vomiting: No Complications Anesthesia Complication: No
--- NOTE | 2023-09-19 16:51 | PCM.POSTANE2 ---
Anesthesia Postop Eval I Sum Postop Eval Completion status Anesthesia document: Postop Eval 1 completed: Yes Anesthesia Postop Eval I Summary Anesthesia Postop Eval I Summary: Anesthesia Postop Eval I: Assessment Summary Airway patent Yes 09/19/23 13:01 DIRECTOR DATA MANAGEMENT.JDEF Spontaneous unlabored Yes 09/19/23 13:01 DIRECTOR DATA MANAGEMENT.JDEF respirations Mental status Awake 09/19/23 13:01 DIRECTOR DATA MANAGEMENT.JDEF nausea No 09/19/23 13:01 DIRECTOR DATA MANAGEMENT.JDEF Vomiting No 09/19/23 13:01 DIRECTOR DATA MANAGEMENT.JDEF Anesthesia Postop Eval I: Fluid Summary Crystalloid volume administer 800 09/19/23 13:01 DIRECTOR DATA MANAGEMENT.JDEF (ml) Colloids volume administered ( ml) Blood Product volume administered (ml) Total IV fluid infused 800 09/19/23 13:01 DIRECTOR DATA MANAGEMENT.JDEF Anesthesia Postop Eval I: Summary Notes Anesthesia Complication No 09/19/23 13:01 DIRECTOR DATA MANAGEMENT.JDEF Anesthesia Complication Comment: Post-operative progress note Anesthesia: Postop Eval II Evaluation Mental status: Awake and Calm Pain Level: 0 nausea: No Vomiting: No Complications Anesthesia Complication: No
== END 2023-09-19 13:32 | disposition home or self-care (01) ==
LOC: EN 10:56 → AC 10:57
PROVIDERS: Anesthesiology; PCP Family Medicine; Referring Provider Family Medicine; Visit Provider Internal Medicine Gastroenterology
PROC: 0DJD8ZZ Inspection of Lower Intestinal Tract, Via Natural or Artificial Opening Endoscopic (ICD-10-PCS; CPT 45378; principal; 2023-09-19 11:55)
DX: R19.7 Diarrhea, unspecified (principal); K63.89 Other specified diseases of intestine; Q43.8 Other specified congenital malformations of intestine; K25.9 Gastric ulcer, unspecified as acute or chronic, without hemorrhage or perforation; K29.80 Duodenitis without bleeding; R10.9 Unspecified abdominal pain; K22.89 Other specified disease of esophagus; K20.80 Other esophagitis without bleeding; K29.70 Gastritis, unspecified, without bleeding
CPT/HCPCS: 43239; 45380; 81025; 88305; 88312; 88342; J7120; J2405

== ENCOUNTER → 2024-05-22 | Outpatient (CLI) | payer BC, SELFPAY ==
[2024-05-22 14:00] LABS: Absolute Lymphocyte Count 1.47 X10^3/uL (0.83-4.51); Basophil# 0.06 X10^3/uL; Eosinophils% 1.6 % (0-5); Hematocrit 37.3 % (37-47); Hemoglobin 12.7 g/dL (12.0-15.0); Lymphocyte # 1.47 X10^3/ul (0.83-4.51); Lymphocyte % 23.9 % (19-41); Mean Corpuscular Hgb 31.9 pg (27.0-32.0); Mean Corpuscular Volume 93.7 fL (81-99); Mean Platelet Vol. 9.7 fl (6.2-12.0); Monocyte% 8.1 % (0-10); NRBC Flagged by Analyzer 0 % (0-5); Neutrophil # 4.01 X10^3/uL (2.7-7.7); Neutrophil % 65.2 % (47-70); Platelet Count 240 K/mm3 (150-450); RBC Distribution Width CV 11.9 % (11.6-14.6); RBC Distribution Width SD 41.3 fl (35.1-43.9); Red Blood Count 3.98 M/mm3 (4.2-5.4); White Blood Count 6.2 K/mm3 (4.4-11.0)
[2024-05-22 14:06] LABS: Erythrocyte Sedimentation Rate < 1 mm/hr (0-30)
[2024-05-22 14:38] LABS: ALB/GLOB Ratio 2.6 RATIO (0.9-2.4); AST(SGOT) 26 U/L (<=31); Alanine Aminotransfer ALT/SGPT 16 U/L (<=34); Albumin, Serum 4.7 g/dL (3.5-5.0); Alkaline Phosphatase 56 U/L (35-104); Anion Gap 11 (5-15); BUN 12 mg/dL (4-19); BUN/Creat Ratio 16.2 RATIO (10-20); Calcium 8.9 mg/dL (7.6-11.0); Chloride 105 mmol/L (96-108); Creatinine, Serum 0.7 mg/dL (0.6-1.0); EST Glomerular Filtration Rate 105 (>60); Globulin 1.8 g/dL (2.2-4.2); Glucose 99 mg/dL (70-99); Protein, Total 6.5 g/dL (5.9-8.4); Sodium Level 139 mmol/L (133-145); Total Bilirubin 0.18 mg/dL (0.00-1.30)
[2024-05-22 14:58] LABS: CRP < 3.00 mg/L (0.0-3.0); Carbon Dioxide 23.5 mmol/L (22.0-29.0)
== END | disposition home or self-care (01) ==
LOC: LAB 13:38
PROVIDERS: PCP Family Medicine; Referring Provider Internal Medicine Gastroenterology; Visit Provider Internal Medicine Gastroenterology
DX: K50.90 Crohn's disease, unspecified, without complications (principal)
CPT/HCPCS: 36415; 80053; 83516; 85025; 85652; 86036; 86140; 86671

== ENCOUNTER → 2024-11-07 | Outpatient (CLI) | payer BC, MEDICAID, SELFPAY ==
[2024-11-07 10:02] LABS: CRP < 3.00 mg/L (0.0-3.0)
== END | disposition home or self-care (01) ==
LOC: LAB 08:15
PROVIDERS: PCP Family Medicine
DX: K50.90 Crohn's disease, unspecified, without complications (principal); R10.9 Unspecified abdominal pain
CPT/HCPCS: 36415; 85652; 86140